=== PATIENT | female | born 1975 | race Caucasian/White ===

== ENCOUNTER 2017-11-07 23:44 | Inpatient (IN) | payer OTHER ==
[2017-11-08] MEDS ORDERED: Magnesium Sulfate 2 GM/100 ML BAG ONE (00:19)
[2017-11-08] MEDS ORDERED: Dexamethasone 10 MG/ML VIAL ONE (00:19)
[2017-11-08] MEDS ORDERED: Albuterol Sulfate 2.5 mg/3 ml Neb ONE (00:19)
[2017-11-08] MEDS ORDERED: Albuterol Sulfate 2.5 mg/3 ml Neb NEB PRN (00:33)
[2017-11-08] MEDS ORDERED: Dextrose 5% in Water 1,000 ML IV PRN (00:36)
[2017-11-08] MEDS ORDERED: Dextrose 50% Abboject 50 ML SYRINGE SLOW IVP PRN (00:36)
[2017-11-08] MEDS ORDERED: Ondansetron HCl/PF 4 MG/2 ML Vial IVP PRN (01:25)
[2017-11-08] MEDS ORDERED: Milk Of Magnesia 30 ML UDCUP PO PRN (01:25)
[2017-11-08] MEDS ORDERED: Acetaminophen 325 MG TAB PO PRN (01:25)
[2017-11-08] MEDS ORDERED: guaiFENesin 100 MG/5 ML UDCUP PO PRN (01:29)
[2017-11-08 01:59] VITALS: BMI 43.8
--- NOTE | 2017-11-08 02:26 | HP ---
PRIMARY CARE PHYSICIAN: Harinder Staley M.D. PRESENTING COMPLAINT: Shortness of breath. HISTORY OF PRESENT ILLNESS: Ms. Moise Rose is a 42-year-old female with a past medical history of type 2 diabetes mellitus, hypertension, hyperlipidemia, depression, and likely undiagnosed chronic obstructive pulmonary disease, who presents to the emergency room with worsening shortness of breath. She reports she has had symptoms from Thursday around noon with shortness of breath, wheezing , and a nonproductive cough. She also reports a fever of 101.6 on Thursday, but did not have chills, nausea, vomiting, or diarrhea. She has no chest pain, palpitations, PND, orthopnea, lower extremity edema. She was prescribed an inhaler from July of this year by her primary care physician due to continued wheezing. She also reports she has been using it up to 6 to 8 times daily in the past few weeks without improvement in her symptoms. She smokes about half a pack of cigarettes a day. At the emergency room, her oxygen saturation was about 89% on room air. She was started on oxygen supplementation. She also received nebulizer treatments, magnesium, dexamethasone. Her symptoms did not improve significantly enough and she still required supplemental oxygen, so she was admitted for further management of her asthma versus COPD exacerbation. PAST MEDICAL HISTORY: As stated in the HPI. PAST SURGICAL HISTORY: None. FAMILY HISTORY: Reviewed and noncontributory. SOCIAL HISTORY: Smokes half a pack of cigarettes a day. Does not drink alcohol or use illicit drugs. ALLERGIES: No known drug allergies. HOME MEDICATIONS: Hydralazine 50 mg b.i.d., Lipitor 20 mg daily, glipizide 2.5 mg daily, hydrochlorothiazide/losartan 100 mg/25 mg tablets daily, ranitidine 150 mg daily, venlafaxine 75 mg b.i.d. REVIEW OF SYSTEMS: A 10-point review of systems conducted were negative except as stated in HPI. PHYSICAL EXAMINATION: VITAL SIGNS: Blood pressure 124/85, pulse rate is 90, respiratory rate 20, oxygen saturation 94% on 2 liters of oxygen. GENERAL: Not in acute distress, sitting up in bed, looks comfortable, speaking in complete sentences. HEENT: Normocephalic, atraumatic. Not pale, anicteric. PERRLA, EOMI. Moist mucous membranes. NECK: Supple, full range of movement. No JVD. RESPIRATORY: Scattered wheezes bilaterally. CARDIOVASCULAR: S1, S2 only. Regular rate and rhythm. No murmurs, rubs, or gallops. MUSCULOSKELETAL: No edema. PSYCHIATRIC: Normal mood and affect. NEUROLOGIC: Alert and oriented to time, place, and person. No focal deficits. SKIN: Warm, dry, well-perfused. No rashes or lesions. LABORATORY DATA: Within normal limits. IMAGING: Chest x-ray done at [place] showed no acute pathology. D-dimer negative. Troponin was negative. She received Rocephin and Zithromax and IV fluids as well as DuoNebs. ASSESSMENT AND PLAN: 1. Hypoxia: The patient presented with hypoxia, shortness of breath and wheezing, likely from chronic obstructive pulmonary disease exacerbation, although this has not been formally diagnosed. She will be continued on scheduled and p.r.n. bronchodilator therapy, oxygen supplementation, Solu- Medrol and IV ceftriaxone and azithromycin. We will monitor her vital signs closely. 2. Hypertension: She is currently at goal. We will resume her home medications once they have been confirmed. 3. Type 2 diabetes mellitus. Last hemoglobin A1c was 6.6 on 11/04/2017. We will continue her home regimen, placed on sliding scale insulin and diabetic diet, hypoglycemia protocol on fingerstick glucose before meals and at bedtime while on admission. 4. Hyperlipidemia. We will continue atorvastatin. 5. Depression: Patient denies suicidal or homicidal ideations. We will continue venlafaxine 75 mg b.i.d. 6. Deep venous thrombosis prophylaxis. Subcutaneous insulin. CODE STATUS: FULL CODE. MTDD
[2017-11-08] MEDS: Naproxen 500 MG TAB PO PRN ×2 (05:00→20:26)
[2017-11-08] MEDS: HumaLOG 300 UNITS/3 ML VIAL SC PRN ×3 (05:01→16:09)
[2017-11-08 05:10] LABS: #Lymphocytes 0.7 thou/uL (1.20-3.40); #Neutrophils 5.8 thou/uL (1.40-6.50); %Basophils 0.1 % (0.0-1.0); %Eosinophils 0.1 % (0.0-10.0); %Monocytes 0.7 % (0.0-10.0); %Neutrophils 89.1 % (42.0-75.0); Hemoglobin 14.8 g/dL (12.0-16.0); Mean Corpuscular HGB CONC 34.9 g/dL (32.0-36.0); Mean Platelet Volume 6.5 fL (7.4-10.4); Platelet Count 303 thou/uL (130-400); Red Blood Cell (RBC) Count 4.22 mill/uL (4.20-5.40); White Blood Cell (WBC) Count 6.5 thou/uL (4.8-10.8)
[2017-11-08 05:20] LABS: Anion Gap 17 mmol/L (10-20); BUN (Urea Nitrogen) 19 mg/dL (7.0-18.7); Calc. Creatinine Clearance 123 mL/min (70-130); Calcium 8.2 mg/dL (7.8-10.44); Carbon Dioxide 17 mmol/L (22-29); Chloride 103 mmol/L (98-107); Estimated GFR-MDRD 50; Glucose 412 mg/dL (70-105); Potassium 3.2 mmol/L (3.5-5.1); Sodium 134 mmol/L (136-145)
[2017-11-08] MEDS: cefTRIAXone\\ROCEPHIN 1 GM in Sterile Water 10 ML SLOW IVP SCH (09:22)
[2017-11-08] MEDS: hydrALAZINE 25 MG TAB PO SCH ×2 (09:28→20:13)
[2017-11-08] MEDS: Enoxaparin Sodium 40 MG/0.4 ML SYRINGE SC SCH (09:29)
[2017-11-08] MEDS: Azithromycin 250 MG TAB PO SCH (09:29)
[2017-11-08] MEDS: Atorvastatin Calcium 20 MG TAB PO SCH (09:29)
[2017-11-08] MEDS: Nicotine 14 MG PATCH TD SCH (09:29)
[2017-11-08] MEDS: Famotidine 20 MG TAB PO SCH ×2 (09:29→20:13)
[2017-11-08] MEDS: Docusate 100 MG CAP PO SCH ×2 (09:30→20:13)
[2017-11-08] MEDS: Losartan/Hydrochlorothiazide 100 mg/25 mg Tablet PO SCH (09:30)
[2017-11-08] MEDS ORDERED: Nitroglycerin 2% Ointment 1 INCH/1 GM Packet ONE (10:03)
--- NOTE | 2017-11-08 11:57 | PDOC.EVN ---
Event Note - Event Note Event Note: Patient Seen today, Alert and oriented. SOB improving, Pt had marked elevation of BG, will do levemir, 30untis Now, as she is on Steroids IV, Will do Chest xray two views, as she had no chest xray with that level of hypoxia in ER.
[2017-11-08] MEDS ORDERED: Insulin Detemir 100 UNITS/ML 30 UNITS in Pre-Filled Syringe 1 EACH SC SCH (12:00)
[2017-11-08 12:29] LABS: Hemoglobin A1c 6.4 % (4.0-6.0)
[2017-11-08 12:49] LABS: Troponin I Less than 0.010 ng/mL (< 0.028)
--- NOTE | 2017-11-08 13:18 | RAD ---
CHEST 2 VIEWS: Date: 11/08/17 HISTORY: Dyspnea. Fever. COMPARISON: 11/07/17. FINDINGS: Cardiac silhouette is unremarkable. Pulmonary vasculature upper limits of normal. Mediastinum midline . No confluent air space consolidation, pneumothorax, or pleural fluid. IMPRESSION: Borderline pulmonary vascular congestion. POS: [facility]
[2017-11-08 19:11] LABS: Troponin I 0.012 ng/mL (< 0.028)
[2017-11-08] MEDS: Insulin Regular 300 UNITS/3 ML VIAL SC PRN (20:34)
[2017-11-09] MEDS: HumaLOG 300 UNITS/3 ML VIAL SC PRN ×2 (05:36→12:52)
[2017-11-09 06:00] LABS: #Basophils 0.1 thou/uL (0.0-0.2); #Lymphocytes 1.4 thou/uL (1.20-3.40); #Monocytes 0.4 thou/uL (0.11-0.59); #Neutrophils 11.9 thou/uL (1.40-6.50); %Basophils 0.6 % (0.0-1.0); %Eosinophils 0.2 % (0.0-10.0); %Lymphocytes 9.9 % (21.0-51.0); %Monocytes 3.2 % (0.0-10.0); %Neutrophils 86.1 % (42.0-75.0); Hemoglobin 14.7 g/dL (12.0-16.0); Mean Corpuscular HGB CONC 33.9 g/dL (32.0-36.0); Mean Corpuscular Hemoglobin 33.3 pg (27.0-31.0); Mean Corpuscular Volume 98.1 fl (81.0-99.0); Mean Platelet Volume 6.6 fL (7.4-10.4); Platelet Count 300 thou/uL (130-400); RBC Distribution Width 13.8 % (11.5-14.5); Red Blood Cell (RBC) Count 4.41 mill/uL (4.20-5.40); White Blood Cell (WBC) Count 13.8 thou/uL (4.8-10.8)
[2017-11-09] MEDS ORDERED: Diabetic Tussin 200 MG/10 ML UDCUP PO PRN (06:00)
[2017-11-09] MEDS: Naproxen 500 MG TAB PO PRN ×2 (06:06→21:28)
[2017-11-09 06:19] LABS: Anion Gap 12 mmol/L (10-20); BUN (Urea Nitrogen) 19 mg/dL (7.0-18.7); Calc. Creatinine Clearance 180 mL/min (70-130); Calcium 8.2 mg/dL (7.8-10.44); Carbon Dioxide 22 mmol/L (22-29); Chloride 108 mmol/L (98-107); Estimated GFR-MDRD 78; Glucose 209 mg/dL (70-105); Potassium 4.1 mmol/L (3.5-5.1); Sodium 138 mmol/L (136-145)
[2017-11-09] MEDS: Azithromycin 250 MG TAB PO SCH (08:06)
[2017-11-09] MEDS: Famotidine 20 MG TAB PO SCH ×2 (08:06→21:27)
[2017-11-09] MEDS: Docusate 100 MG CAP PO SCH ×2 (08:06→21:31)
[2017-11-09] MEDS: Insulin Detemir 100 UNITS/ML 30 UNITS in Pre-Filled Syringe 1 EACH SC SCH (08:07)
[2017-11-09] MEDS: Atorvastatin Calcium 20 MG TAB PO SCH (08:07)
[2017-11-09] MEDS: Nicotine 14 MG PATCH TD SCH (08:08)
[2017-11-09] MEDS: Losartan/Hydrochlorothiazide 100 mg/25 mg Tablet PO SCH (08:08)
[2017-11-09] MEDS: Enoxaparin Sodium 40 MG/0.4 ML SYRINGE SC SCH (08:08)
[2017-11-09] MEDS: hydrALAZINE 25 MG TAB PO SCH ×2 (08:09→21:27)
[2017-11-09] MEDS: cefTRIAXone\\ROCEPHIN 1 GM in Sterile Water 10 ML SLOW IVP SCH (10:11)
--- NOTE | 2017-11-09 12:46 | EKG ---
Test Reason : Blood Pressure : / mmHG Vent. Rate : 083 BPM Atrial Rate : 083 BPM P-R Int : 144 ms QRS Dur : 096 ms QT Int : 356 ms P-R-T Axes : 039 -19 002 degrees QTc Int : 418 ms Normal sinus rhythm Normal ECG No previous ECGs available Confirmed by DR. Elvin UNGER ([id number]) on 11/09/2017 12:46:12 PM Referred By: KEYONNA Confirmed By:DR. Elvin UNGER
--- NOTE | 2017-11-09 13:07 | PDOC.PN ---
- Subjective Encounter Start Date: 11/09/17 Encounter Start Time: 09:15 -: old records requested/rev Pt seen and examined, chart reviewed in its entirety, this is my frist visit with this patient Follow up for AECOPD Pt with wheezing, SOB, hypoxia on amdit. relates history fo allergy symptoms recently. History fo previosu reactive airway flares on MDIs, last needed in July. Never had formal PFTs No f/c, no N/V/D/c, some NARANJO, no cough, no sputum. continues to smoke, down to 1/2 ppd for last few months, 20-22 pack year history. weaning O2. 10 point rOS performed and neg for all systems except as per HPI - Objective Resuscitation Status: Resuscitation Status FULL:Full Resuscitation MAR Reviewed: Yes Vital Signs & Weight: Vital Signs (12 hours) Temp Pulse Resp BP BP Pulse Ox 11/09/17 12:26 81 16 92 L 11/09/17 08:09 82 110/62 11/09/17 08:00 98.2 F 82 20 92 L 11/09/17 07:16 98.2 F 58 L 20 110/62 92 L 11/09/17 06:45 82 18 96 Weight Weight 279 lb 15.793 oz I&O: 11/08/17 11/09/17 11/10/17 06:59 06:59 06:59 Intake Total 1600 Balance 1600 Result Diagrams: 11/09/17 04:49 11/09/17 04:49 Additional Labs: Accuchecks 11/09/17 11/09/17 11/08/17 11:41 05:36 20:32 POC Glucose 191 H 199 H 249 H 11/08/17 11/08/17 16:09 12:30 POC Glucose 249 H 239 H Radiology Reviewed by me: Yes EKG Reviewed by me: Yes Phys Exam - Physical Examination Constitutional: NAD HEENT: PERRLA, moist MMs, sclera anicteric, oral pharynx no lesions Neck: no nodes, no JVD, supple, full ROM Respiratory: no wheezing, no rales, no rhonchi, clear to auscultation bilateral slightly prolonged exp phase Cardiovascular: RRR, no significant murmur, no rub Gastrointestinal: soft, non-tender, no distention, positive bowel sounds Musculoskeletal: no edema, pulses present Neurological: non-focal, normal sensation, moves all 4 limbs Lymphatic: no nodes Psychiatric: normal affect, A&O x 3 Skin: no rash, normal turgor, cap refill <2 seconds Dx/Plan (1) Acute asthma exacerbation Code(s): J45.901 - UNSPECIFIED ASTHMA WITH (ACUTE) EXACERBATION Status: Acute Qualifiers: Asthma severity: mild Asthma persistence: intermittent Qualified Code(s) : J45.21 - Mild intermittent asthma with (acute) exacerbation (2) Acute hypoxemic respiratory failure Code(s): J96.01 - ACUTE RESPIRATORY FAILURE WITH HYPOXIA Status: Acute Comment: wean O2, home when off (3) Obesity (BMI 30.0-34.9) Code(s): E66.9 - OBESITY, UNSPECIFIED Status: Chronic (4) Tobacco abuse Code(s): Z72.0 - TOBACCO USE Status: Chronic (5) DM2 (diabetes mellitus, type 2) Status: Chronic Qualifiers: Diabetes mellitus long-term insulin use: without intermediate project manager use Diabetes mellitus complication status: without complication Qualified Code(s): E11.9 - Type 2 diabetes mellitus without complications (6) HLD (hyperlipidemia) Code(s): E78.5 - HYPERLIPIDEMIA, UNSPECIFIED Status: Chronic Qualifiers: Hyperlipidemia type: unspecified Qualified Code(s): E78.5 - Hyperlipidemia , unspecified (7) HTN (hypertension) Code(s): I10 - ESSENTIAL (PRIMARY) HYPERTENSION Status: Chronic Qualifiers: Hypertension type: essential hypertension Qualified Code(s): I10 - Essential (primary) hypertension - Plan cont current plan of care, continue antibiotics, respiratory therapy, incentive spirometry, out of bed/ambulate * .
[2017-11-09] MEDS: Insulin Regular 300 UNITS/3 ML VIAL SC PRN (21:31)
[2017-11-10] MEDS ORDERED: Sodium Chloride 0.65% Nasal 44 ML BOT EA NARE PRN (03:25)
[2017-11-10] MEDS: HumaLOG 300 UNITS/3 ML VIAL SC PRN ×2 (05:00→12:18)
[2017-11-10] MEDS: Naproxen 500 MG TAB PO PRN (05:03)
[2017-11-10 06:25] LABS: Hemoglobin 14.6 g/dL (12.0-16.0); Lymphocytes 15 % (21-51); MDiff Complete? YES; Macrocytosis SLIGHT = 6-15 cells (100X) (0-5/hpf); Mean Corpuscular HGB CONC 33.4 g/dL (32.0-36.0); Mean Corpuscular Hemoglobin 33.3 pg (27.0-31.0); Mean Corpuscular Volume 99.7 fl (81.0-99.0); Mean Platelet Volume 7.3 fL (7.4-10.4); Monocytes 3 % (0-10); Neutrophil 82 % (42-75); PLT Morphology Comment Appears Adequate; Platelet Count 291 thou/uL (130-400); RBC Distribution Width 14.2 % (11.5-14.5); Red Blood Cell (RBC) Count 4.38 mill/uL (4.20-5.40)
[2017-11-10 06:54] LABS: Anion Gap 9 mmol/L (10-20); BUN (Urea Nitrogen) 23 mg/dL (7.0-18.7); Calc. Creatinine Clearance 187 mL/min (70-130); Calcium 8.4 mg/dL (7.8-10.44); Carbon Dioxide 29 mmol/L (22-29); Chloride 107 mmol/L (98-107); Estimated GFR-MDRD 81; Glucose 197 mg/dL (70-105); Magnesium 2.5 mg/dL (1.6-2.6); Potassium 4.2 mmol/L (3.5-5.1); Sodium 141 mmol/L (136-145)
[2017-11-10] MEDS: Insulin Detemir 100 UNITS/ML 30 UNITS in Pre-Filled Syringe 1 EACH SC SCH (09:06)
[2017-11-10] MEDS: Atorvastatin Calcium 20 MG TAB PO SCH (09:06)
[2017-11-10] MEDS: hydrALAZINE 25 MG TAB PO SCH ×2 (09:07→20:48)
[2017-11-10] MEDS: Famotidine 20 MG TAB PO SCH ×2 (09:07→20:48)
[2017-11-10] MEDS: Docusate 100 MG CAP PO SCH ×2 (09:07→20:47)
[2017-11-10] MEDS: Azithromycin 250 MG TAB PO SCH (09:07)
[2017-11-10] MEDS: Enoxaparin Sodium 40 MG/0.4 ML SYRINGE SC SCH (09:08)
[2017-11-10] MEDS: Nicotine 14 MG PATCH TD SCH (09:08)
[2017-11-10] MEDS: Losartan/Hydrochlorothiazide 100 mg/25 mg Tablet PO SCH (09:08)
[2017-11-10] MEDS: cefTRIAXone\\ROCEPHIN 1 GM in Sterile Water 10 ML SLOW IVP SCH (09:57)
[2017-11-10] MEDS ORDERED: Fluticasone Propionate Nasal Spray 16 gm Bottle NASAL SCH (10:15)
--- NOTE | 2017-11-10 11:51 | PDOC.PN ---
- Subjective Encounter Start Date: 11/10/17 Encounter Start Time: 09:25 Pt sitting stright up, complaints of recent nosebleed and blood streaked sputum , taste of blood. No F/C, some wheezing, some NARANJO, persistant cough, worse with lyingback No N/V/D/c, no CP, some throat fullness All systems reviewed and neg for all except as above - Objective Resuscitation Status: Resuscitation Status FULL:Full Resuscitation MAR Reviewed: Yes Vital Signs & Weight: Vital Signs (12 hours) Temp Pulse Resp BP BP Pulse Ox 11/10/17 09:07 83 178/85 H 11/10/17 08:00 98.2 F 83 22 H 178/85 H 97 11/10/17 06:45 74 18 93 L 11/10/17 03:58 92 L Weight Weight 279 lb 15.793 oz I&O: 11/09/17 11/10/17 11/11/17 06:59 06:59 06:59 Intake Total 1600 1660 Balance 1600 1660 Result Diagrams: 11/10/17 05:06 11/10/17 06:31 Additional Labs: Accuchecks 11/10/17 11/10/17 11/09/17 11:10 04:59 19:55 POC Glucose 183 H 199 H 251 H 11/09/17 11/09/17 16:16 11:41 POC Glucose 137 H 191 H Phys Exam - Physical Examination Constitutional: NAD HEENT: PERRLA, moist MMs, sclera anicteric, oral pharynx no lesions Neck: no nodes, no JVD, supple, full ROM Respiratory: no rales, no rhonchi high pitched end exp wheezes anteriorly, prolonged exp Cardiovascular: RRR, no significant murmur, no rub Gastrointestinal: soft, non-tender, no distention, positive bowel sounds Musculoskeletal: pulses present, edema present Lymphatic: no nodes Psychiatric: normal affect, A&O x 3 Skin: no rash, normal turgor, cap refill <2 seconds Dx/Plan (1) Acute asthma exacerbation Code(s): J45.901 - UNSPECIFIED ASTHMA WITH (ACUTE) EXACERBATION Status: Acute Qualifiers: Asthma severity: mild Asthma persistence: intermittent Qualified Code(s) : J45.21 - Mild intermittent asthma with (acute) exacerbation Comment: On steroids, nebs, add in Mucinex, ask pulm to see regarding spirometry. CCM with abx (2) Acute hypoxemic respiratory failure Code(s): J96.01 - ACUTE RESPIRATORY FAILURE WITH HYPOXIA Status: Acute Comment: wean O2, home when off, down to 1L iwth 94% sats when idle (3) Obesity (BMI 30.0-34.9) Code(s): E66.9 - OBESITY, UNSPECIFIED Status: Chronic (4) Tobacco abuse Code(s): Z72.0 - TOBACCO USE Status: Chronic (5) DM2 (diabetes mellitus, type 2) Status: Chronic Qualifiers: Diabetes mellitus long-term insulin use: without long-term use Diabetes mellitus complication status: without complication Qualified Code(s): E11.9 - Type 2 diabetes mellitus without complications (6) HLD (hyperlipidemia) Code(s): E78.5 - HYPERLIPIDEMIA, UNSPECIFIED Status: Chronic Qualifiers: Hyperlipidemia type: unspecified Qualified Code(s): E78.5 - Hyperlipidemia , unspecified (7) HTN (hypertension) Code(s): I10 - ESSENTIAL (PRIMARY) HYPERTENSION Status: Chronic Qualifiers: Hypertension type: essential hypertension Qualified Code(s): I10 - Essential (primary) hypertension - Plan cont current plan of care, continue antibiotics, PT/OT, respiratory therapy, out of bed/ambulate * .
--- NOTE | 2017-11-10 19:34 | CON ---
DATE OF CONSULTATION: 11/10/2017 HISTORY OF PRESENT ILLNESS: A 42-year-old female from [place], [place], 5 feet 7, 279 pounds, BM I more than 40, who presented to the hospital with a several-day history of cough, congestion, shortn ess of breath, and wheezing. She has been smoking up to a pack a day for most of her life over 20 ye ars. She says on most days she can walk maybe half a block, following which she gets tired. She has wheezing. She snores, unclear witnessed apnea. Her , who is an assistant floor covering printer at [employer], does not recollect her having witnessed apnea. Though clearly she is excessively tired and sleeping in the daytime. She is presently a housewife. No prior history of TB, pneumonia, or bronchial asthma, but bron chitis. PAST MEDICAL HISTORY: Otherwise is pertinent for previous kidney stones, hypertension, hyperlipidemi a, depression, and diabetes. MEDICATIONS: At home includes ProAir HFA inhaler, glipizide 5 mg, Effexor 75, hydralazine 50 twice a day, losartan 1 a day, and nose spray. ALLERGIES: None. PAST SURGICAL HISTORY: Previous surgeries are apparently none except for maybe what appears to be so me kind of kidney stone related procedure. SOCIAL HISTORY: Alcohol: None. Tobacco as noted. REVIEW OF SYSTEMS: Ten-point negative. PHYSICAL EXAMINATION: VITAL SIGNS: Blood pressure is 172/85, temperature is 98, sats are 97% on room air, respiratory rate 22. CHEST: Decreased breath sounds, no wheezing or crackles. CARDIAC: Normal S1 and S2, no gallops. ABDOMEN: Soft, massive. EXTREMITIES: No edema. NEUROLOGIC: She is awake, alert, responsive. LABORATORY DATA: Her blood sugar is elevated at 197. Electrolytes are normal. White count 13,000, platelet count is normal. Chest x-ray shows no acute infiltrates. IMPRESSION: 1. Chronic obstructive pulmonary disease exacerbation, bronchitis. 2. Morbid obesity, probably sleep apnea. 3. Tobacco abuse. 4. Diabetes. 5. Hypertension. PLAN: Switch over to oral medication. I have ordered a pulmonary function test prior to discharge. She is to refrain from smoking. She needs an outpatient sleep study done. Advised to lose weight. We will follow while in the hospital.
[2017-11-10] MEDS: Mometasone/Formoterol 120 PUFF INHALER INH SCH (19:47)
[2017-11-10] MEDS: Doxycycline 100 MG CAP PO SCH (20:48)
--- NOTE | 2017-11-11 05:37 | PRG ---
DATE OF SERVICE: 11/10/2017 This morning she is awake, alert, responsive, says she is wheezing. PHYSICAL EXAMINATION: VITAL SIGNS: Sats are 95% on 1 liter, respiration is 18, blood pressure is 143/89, temperature 98. CHEST: I hear no wheezing. CARDIAC: Normal S1, S2. No gallops. ABDOMEN: Soft, no masses. IMPRESSION: 1. Chronic obstructive pulmonary disease exacerbation. 2. Bronchitis. Continue p.o. prednisone, neb treatments, supportive care. PFT. I will follow.
[2017-11-11 05:39] LABS: Anion Gap 11 mmol/L (10-20); BUN (Urea Nitrogen) 26 mg/dL (7.0-18.7); Calc. Creatinine Clearance 182 mL/min (70-130); Calcium 8.1 mg/dL (7.8-10.44); Carbon Dioxide 26 mmol/L (22-29); Chloride 106 mmol/L (98-107); Estimated GFR-MDRD 79; Glucose 80 mg/dL (70-105); Magnesium 2.1 mg/dL (1.6-2.6); Potassium 3.5 mmol/L (3.5-5.1); Sodium 139 mmol/L (136-145)
[2017-11-11 05:45] LABS: Band 1 % (5-11); Hemoglobin 13.6 g/dL (12.0-16.0); Lymphocytes 64 % (21-51); MDiff Complete? YES; Mean Corpuscular HGB CONC 33.2 g/dL (32.0-36.0); Mean Corpuscular Volume 99.5 fl (81.0-99.0); Mean Platelet Volume 6.4 fL (7.4-10.4); Monocytes 1 % (0-10); Neutrophil 34 % (42-75); PLT Morphology Comment Appears Adequate; Platelet Count 258 thou/uL (130-400); RBC Distribution Width 13.9 % (11.5-14.5); Red Blood Cell (RBC) Count 4.13 mill/uL (4.20-5.40); White Blood Cell (WBC) Count 10.2 thou/uL (4.8-10.8)
[2017-11-11] MEDS: Mometasone/Formoterol 120 PUFF INHALER INH SCH (06:28)
[2017-11-11] MEDS: Losartan/Hydrochlorothiazide 100 mg/25 mg Tablet PO SCH (07:29)
[2017-11-11] MEDS: Docusate 100 MG CAP PO SCH (07:30)
[2017-11-11] MEDS: hydrALAZINE 25 MG TAB PO SCH (07:30)
[2017-11-11] MEDS: Enoxaparin Sodium 40 MG/0.4 ML SYRINGE SC SCH (07:33)
[2017-11-11] MEDS: Doxycycline 100 MG CAP PO SCH (07:33)
[2017-11-11] MEDS: Atorvastatin Calcium 20 MG TAB PO SCH (07:33)
[2017-11-11] MEDS ORDERED: predniSONE 20 MG TAB PO SCH (08:00)
[2017-11-11 08:03] VITALS: BP 141/88; TEMP 98.2
[2017-11-11] MEDS: Famotidine 20 MG TAB PO SCH (08:46)
[2017-11-11] MEDS: Nicotine 14 MG PATCH TD SCH (08:46)
[2017-11-11] MEDS ORDERED: Insulin Glargine 30 UNITS in Pre-Filled Syringe 1 EACH SC SCH (09:00)
[2017-11-11] MEDS ORDERED: Fluticasone Propionate Nasal Spray 16 gm Bottle NASAL SCH (09:00)
--- NOTE | 2017-11-11 14:02 | PDOC.PN ---
- Subjective Encounter Start Date: 11/11/17 Encounter Start Time: 09:55 -: old records requested/rev Pt seen an rounds, , daughter, grand-daughter at bedside, updated. Pt did well yesterday, seen by Dr Guthrie. agreeable to bedside SP catheter when urine sterilized. two hours later, pt went into afib with RVR, became hypoxemic, SOB and altered. Code renetta called, Trop 1.6, transferred on BiPAP to [facility]. Since then, trop elevated to 81 then to >120 thi smorning. pt denies CP. Pt remains on bipap. after discussionm with fmsara, will attempt to wena off BiPAP, and if not able to, will rally family members for terminal removal and comfort care. Palliative care consulted, ? hospice. Pt DNR/DNI, currently a chemical code, but after family discussion, have stopped that. Pt aorusable and pleasant, denies any problems - Objective Resuscitation Status: Resuscitation Status FULL:Full Resuscitation Vital Signs & Weight: Vital Signs (12 hours) Temp Pulse Resp BP Pulse Ox 11/11/17 11:33 73 14 94 L 11/11/17 08:00 98.2 F 72 18 141/88 H 96 11/11/17 07:30 71 11/11/17 06:28 71 16 94 L 11/11/17 06:24 71 16 94 L 11/11/17 04:28 95 11/11/17 02:21 69 18 95 Weight Weight 279 lb 15.793 oz I&O: 11/10/17 11/11/17 11/12/17 06:59 06:59 06:59 Intake Total 1660 400 600 Balance 1660 400 600 Result Diagrams: 11/11/17 04:24 11/11/17 04:24 Additional Labs: Accuchecks 11/11/17 11/11/17 11/10/17 11:06 03:51 19:15 POC Glucose 130 H 91 159 H 11/10/17 16:26 POC Glucose 128 H Dx/Plan (1) Acute asthma exacerbation Code(s): J45.901 - UNSPECIFIED ASTHMA WITH (ACUTE) EXACERBATION Status: Acute Qualifiers: Asthma severity: mild Asthma persistence: intermittent Qualified Code(s) : J45.21 - Mild intermittent asthma with (acute) exacerbation Comment: On steroids, nebs, add in Mucinex, ask pulm to see regarding spirometry. CCM with abx (2) Acute hypoxemic respiratory failure Code(s): J96.01 - ACUTE RESPIRATORY FAILURE WITH HYPOXIA Status: Acute Comment: wean O2, home when off, down to 1L iwth 94% sats when idle (3) Obesity (BMI 30.0-34.9) Code(s): E66.9 - OBESITY, UNSPECIFIED Status: Chronic (4) Tobacco abuse Code(s): Z72.0 - TOBACCO USE Status: Chronic (5) DM2 (diabetes mellitus, type 2) Status: Chronic Qualifiers: Diabetes mellitus intermodal customer service insulin use: without shelter use Diabetes mellitus complication status: without complication Qualified Code(s): E11.9 - Type 2 diabetes mellitus without complications (6) HLD (hyperlipidemia) Code(s): E78.5 - HYPERLIPIDEMIA, UNSPECIFIED Status: Chronic Qualifiers: Hyperlipidemia type: unspecified Qualified Code(s): E78.5 - Hyperlipidemia , unspecified (7) HTN (hypertension) Code(s): I10 - ESSENTIAL (PRIMARY) HYPERTENSION Status: Chronic Qualifiers: Hypertension type: essential hypertension Qualified Code(s): I10 - Essential (primary) hypertension - Plan * .
--- NOTE | 2017-11-11 14:07 | DIS ---
DATE OF ADMISSION: 11/08/2017 DATE OF DISCHARGE: 11/11/2017 PRIMARY CARE PHYSICIAN: Harinder Staley M.D. DISCHARGE DIAGNOSES: 1. Acute bacterial bronchitis. 2. Acute exacerbation of chronic obstructive pulmonary disease. 3. Acute hypoxemic respiratory failure. 4. Obesity. 5. Tobacco abuse. 6. Essential hypertension. CONSULTATIONS: Dr. Roberto Evans, 11/10/2017. PROCEDURES: Spirometry, results currently pending. HISTORY AND PHYSICAL: Ms. Rose is a 42-year-old female with history of hypertension, obesity, tob acco abuse who presents to the emergency department the day of admission with complaints of increased shortness of breath. She had been previously diagnosed with COPD, had had some reactive airway disease and has been prescr ibed inhalers in the past. She had a nonproductive cough, shortness of breath, wheezing, and a fever of 101.6 a couple of days prior to admission. In the emergency department, she is noted to have an oxygen saturation of 89% on room air, was given supplemental oxygen, nebulizer treatments and Decadron. We were subsequently called for admission. HOSPITAL COURSE: The patient was seen and examined by Dr. Bell. She was placed on inpatient sta tus, IV Solu-Medrol, IV levofloxacin, scheduled and p.r.n. nebulizer treatments. Overnight 11/08/2017 to 11/09/2017, she was still short of breath. I took the case over and continue d to treat her with the same treatments and added guaifenesin ER. She was still having a chronic dry cough, so Flonase was added to her regimen. On 11/09/2017 to 11/10/2017, she slowly improved. She was weaned down from 2 to 1 liter of oxygen vi a nasal cannula, still satting in the mid 90s. Her cough was still productive and she had some blood tinging. Pulmonary Critical Care was consulted for possible need for spirometry and outpatient foll owup and was seen by Dr. Evans. Spirometry was ordered and results are currently pending. Overnight 11/10/2017 to 11/11/2017, she was weaned off the oxygen on room air. Ambulatory sats were greater than 98%. She was transitioned to p.o. doxycycline by Dr. Evans and started on Dulera. She was cleared for outpatient discharge with outpatient followup. PHYSICAL EXAMINATION: The patient was seen and examined on the day of discharge. Discharge plan and disposition were discussed with the patient face to face at the bedside. DISCHARGE MEDICATIONS: NEW MEDICATIONS: 1. Doxycycline 100 mg p.o. b.i.d. for 10 more days. 2. Flonase 2 puffs each nostril daily. New prescription sent. 3. DuoNeb 3 mL q.6 hours scheduled for now, prescription for 30 days with 2 refills sent. 4. Dulera 200/5 two puffs inhaled b.i.d. Prescription sent. Nebulizer accessories sent. She rishabh smith has access to a nebulizer at home. 5. Prednisone 20 mg tablets 40 mg p.o. daily to decrease by 10 mg every other day until tapered off. Prescription for 10 tablets sent. Medicines to resume: 1. Albuterol sulfate HFA 2 puffs q.4 hours p.r.n. 2. Lipitor 20 mg p.o. daily. 3. Vitamin D3 1000 units p.o. daily. 4. Glipizide XL 5 mg p.o. q.a.m. 5. Hydralazine 50 mg p.o. b.i.d. 6. Losartan/HCTZ one tablet daily. 7. Zantac 150 mg p.o. at bedtime. 8. Venlafaxine 75 mg p.o. b.i.d. FOLLOWUP APPOINTMENTS: 1. Dr. Staley as scheduled. 2. Dr. Evans in 2-3 weeks. DISCHARGE CONDITION: Stable. DISPOSITION: Discharged home via private vehicle. ACTIVITY: Per cardiopulmonary limits. DISCHARGE DIET: Heart healthy recommended.
== END 2017-11-11 14:25 | disposition home or self-care (01) | DRG 189 ==
LOC: ERS 23:44 → T4-B 11-08 01:15
PROVIDERS: ADMIT Internal Medicine; ATTEND Internal Medicine
DX: J96.01 Acute respiratory failure with hypoxia (principal); J44.0 Chronic obstructive pulmonary disease with (acute) lower respiratory infection; Z68.41 Body mass index [BMI] 40.0-44.9, adult; J20.8 Acute bronchitis due to other specified organisms; E66.9 Obesity, unspecified; E11.9 Type 2 diabetes mellitus without complications; I10 Essential (primary) hypertension; E78.5 Hyperlipidemia, unspecified; F32.9 Major depressive disorder, single episode, unspecified; F17.210 Nicotine dependence, cigarettes, uncomplicated
CPT/HCPCS: 36415; 36416; 71046; 80048; 83036; 83735; 84484; 85025; 93005; 93010; 94010; 94664; 94727; 94729; 96365; 96375; A4216; J0696; J1100; J1650; J1815; J2920; J3475; J7506; J7611; J7620